=== PATIENT | male | born 1990 | race African-American/Black ===

== ENCOUNTER 2024-03-25 18:32 | Emergency (ER) | payer SELFPAY ==
--- NOTE | 2024-03-25 18:30 | RT.EKG_ITS ---
APPROVED REPORT Exam: Resting ECG Reason for Exam: [facility] Patient Location: E HR:66 bpm ECG Measurements Heart Rate 66 AXIS NM 124 P 0 QRSd 79 QRS 13 QT 347 T 41 QTc 363 Conclusion Sinus rhythm...normal P axis, V-rate 60- 99 ST elev, probable normal early repol pattern...ST elevation, age<55 sinus rhythm, normal axis, normal intervals, non ischemic, early repol
[2024-03-25] MEDS: OLANZapine 10 MG VIAL IM (18:42)
--- NOTE | 2024-03-25 18:43 | ED.GENADUL_ITS ---
Discharge Plan Disposition Patient Disposition: [facility] Condition: Improving Discharge Details Chief Complaint: PsychEval Clinical Impression: Rhabdomyolysis, Drug use ED Provider: Schuyler Bah Discharge Instructions Instructions: Rhabdomyolysis Additional Instructions: Please ensure that you are staying hydrated. Please return to the emergency department for any worsening symptoms HPI General Date/Time Provider Initiated Documentation: 03/25/24 18:34 . HPI Narrative: Unknown male brought in in police custody after being picked up for strange behavior, patient endorses smoking fentanyl and also smoking and other drug earlier today, otherwise not giving any information regarding name or situation, patient has physical altercation with police officers was placed in handcuffs, here for medical evaluation and clearance. Exam Narrative Exam Narrative: Patient sitting upright in wheelchair handcuffed behind his back Diaphoretic warm to the touch Tachycardia normal heart sounds Lungs clear bilaterally speaking in short brief sentences no retractions no wheezes rhonchi or rales Abdomen soft nontender nondistended Moving all extremities cranial nerves intact, 5 out of 5 strength upper and lower extremity Medical Decision Making Unknown age male brought in by PD in custody for strange behavior in public, patient endorses smoking fentanyl and another substance earlier today, patient not disclosing name or any further information regarding what transpired before arrival; patient noted to be diaphoretic tachycardic warm to the touch, no external signs of trauma, moving all extremities without deficits no cranial nerve deficits, no respiratory distress. Obtaining fingerstick glucose, stat EKG, patient placed in 4-point restraints for his safety and the safety of himself and staff, was given 10 mg IM olanzapine, IV access to be obtained patient placed on monitor, will obtain toxicologic labs CT head chest x-ray, urinalysis, VBG CPK TSH consider intoxication/overdose versus must consider intracranial trauma versus electrolyte derangement versus dehydration lower suspicion for infectious process 22: 49 patient resting notably no acute distress. Alert oriented interactive. No signs of current intoxication. Patient still refusing to give his full identification as he is under investigation by PD. Patient is in custody of [facility]. There is no ID on the patient we have no access to finding history identification. Patient has told me that his name is Gil but said he would rather not give me his last name. [place] police have conferred with their sergeant who endorses that they are able to take him into custody even without identification. Resolving mild rhabdomyolysis, patient tolerating p.o. has access to fluids. Quality:SDOH Health Related Social Needs: No Data to Display PFSH All Active Problems (Updated 03/25/24 @ 22:51 by Schuyler Bah MD) Drug use (Acute) Rhabdomyolysis (Acute) Social History Smoking/Tobacco Use Status: Unknown Smoking risk assessment performed?: Yes Substance use type: unknown
[2024-03-25] MEDS: Water,Injection,Sterile 10 ML VIAL (19:01)
[2024-03-25 19:30] LABS: BE (Venous) 2 mmol/L (-2-3); HCO3 (Venous) 27 mmol/L (23-28); O2 Sat (Venous) 72 %; TCO2 (Venous) 24 mmol/L (24-29); pCO2 (Venous) 41 mmHg (41-51); pH (Venous) 7.42 (7.31-7.41); pO2 (Venous) 38 mmHg
[2024-03-25 19:31] LABS: Abs Immature Grans 0.03 10^3/uL (0.0-0.06); Absolute Basophil Count 0.02 10^3/uL (0.0-0.2); Absolute Lymphocyte Count 0.78 10^3/uL (1.2-3.4); Absolute Monocyte Count 0.93 10^3/uL (0.1-0.8); Absolute Neutrophil Count 5.57 10^3/uL (1.2-6.7); Basophils % 0.3 %; HCT 40.2 % (40.0-50.0); Immature Grans % 0.4 %; Lymphocytes % 10.6 %; MCH 30.5 pg (27.0-33.0); MCHC 34.8 % (32.0-36.0); MCV 88 fL (80-95); MPV 9.5 fL (8.0-11.0); Monocytes % 12.7 %; Platelet Count 312 10^3/uL (130-400); RBC 4.59 10^6/uL (4.36-5.78); RDW-SD 38.6 fL; WBC 7.33 10^3/uL (4.4-10.8)
[2024-03-25] MEDS: Normal Saline 1,000 ML 1000 ML IV ×2 (19:31→21:56)
[2024-03-25 19:55] LABS: Salicylate 3.1 mg/dL (<2.8)
[2024-03-25 19:56] LABS: Acetaminophen < 2 ug/mL (10-30)
[2024-03-25 19:58] LABS: ALT 17 U/L (16-63); AST 43 U/L (15-37); Albumin 4.7 g/dL (3.4-5.0); Alkaline Phosphatase 83 U/L (46-116); Anion Gap 13.3 mmol/L (3-11); BUN 7 mg/dL (7-18); Bilirubin, Total 1.49 mg/dL (0.2-1.0); CO2 27.7 mmol/L (21.0-32.0); CREATININE 1.3 mg/dL (0.70-1.30); Calcium 9.4 mg/dL (8.5-10.1); Chloride 102 mmol/L (98-107); Creatine Kinase 1509 U/L (39-308); ETHANOL BLOOD < 3.0 mg/dL (<10); Estimated GFR 73.93 (mL/min/1.73m2); Glucose 119 mg/dL (74-106); Lipase 17 U/L (16-77); Magnesium 1.9 mg/dL (1.8-2.4); Potassium 3.1 mmol/L (3.5-5.1); Sodium 143 mmol/L (136-145); TSH (W/Ref FT4) 0.41 uIU/mL (0.36-3.74); Total Protein 8.3 g/dL (6.4-8.2)
--- NOTE | 2024-03-25 20:05 | DI.RAD_ITS ---
Exam(s) XR PORTABLE CHEST AP EXAM: XR PORTABLE CHEST AP CLINICAL HISTORY: ams TECHNIQUE: 2D digital imaging was performed of the chest. One image was obtained. An AP view was ob tained. COMPARISON: No exams were available for comparison FINDINGS: MEDIASTINUM: Normal. HEART: Normal. PULMONARY VASCULATURE: Normal. LUNGS: Clear. PLEURAL SPACE: No pleural effusion or pneumothorax. BONE:Within normal limits for the patient's age. There is a mild right convex thoracic scoliosis. OTHER FINDINGS:Normal. IMPRESSION: No acute pulmonary findings. DATA REPOSITORY: RADIATION DOSE DELIVERED:
--- NOTE | 2024-03-25 20:11 | DI.CT_ITS ---
Exam(s) CT HEAD WO EXAM: CT HEAD WO CLINICAL HISTORY: ams. TECHNIQUE: Imaging Protocol: Axial computed tomography images with coronal and sagittal reformatted images were created and reviewed COMPARISON: No exams were available for comparison FINDINGS: Ventricles and Extra axial spaces: Normal in size and morphology for the patient's age. Hemorrhage: None. Cerebral parenchyma: Normal. No mass effect. No evidence of an acute territorial infarct. Midline shift: None. Brainstem/Cerebellum: Normal. Calvarium: Normal. Visualized Paranasal sinuses/Mastoids: Clear. Soft Tissues: Unremarkable. IMPRESSION: No acute intracranial process. RADIATION DOSE DELIVERED: Total DLP DATA REPOSITORY: All CT scans at this facility are submitted to the National Radiology Data Registry (NRDR) Dose Index Registry (DIR) with the [employer] ([employer]). RADIATION OPTIMIZATION: All CT scans at this facility use at least one of these dose optimization te chniques: automated exposure control; mA and/or kV adjustment per patient size (includes targeted exa ms where dose is matched to clinical indication); or iterative reconstruction.
--- NOTE | 2024-03-25 20:51 | DI.VRAD_ITS ---
PROCEDURE INFORMATION: Exam: XR Chest Exam date and time: 03/25/2024 8:00 PM Age: 33 years old Clinical indication: AMS TECHNIQUE: Imaging protocol: Radiologic exam of the chest. Views: 1 view. COMPARISON: No relevant prior studies available. FINDINGS: Lungs: Clear lungs. Pleural spaces: No pneumothorax. No sizable pleural effusion. Heart/Mediastinum: No cardiomegaly. Bones/joints: Unremarkable. IMPRESSION: Clear lungs. Dictated and Authenticated by: Claudio Gonzalez MD. Ordering:STEFFI Payan MD
--- NOTE | 2024-03-25 20:51 | DI.VRAD_ITS ---
PROCEDURE INFORMATION: Exam: CT Head Without Contrast Exam date and time: 03/25/2024 8:03 PM Age: 33 years old Clinical indication: Altered mental status/memory loss; Confusion or disorientation; Patient HX: AMS TECHNIQUE: Imaging protocol: Computed tomography of the head without contrast. Radiation optimization: All CT scans at this facility use at least one of these dose optimization techniques: automated exposure control; mA and/or kV adjustment per patient size (includes targeted exams where dose is matched to clinical indication); or iterative reconstruction. COMPARISON: No relevant prior studies available. FINDINGS: Brain: No evidence for acute transcortical infarct. No mass effect or midline shift. No extra-axial collection. No acute intracranial hemorrhage. Basal cisterns are patent. Cerebral ventricles: No ventriculomegaly. Paranasal sinuses: Visualized sinuses are unremarkable. No fluid levels. Mastoid air cells: Visualized mastoid air cells are well aerated. Bones: Unremarkable. No acute fracture. Soft tissues: Unremarkable. IMPRESSION: No evidence for acute transcortical infarct, acute intracranial hemorrhage, or mass effect. Dictated and Authenticated by: Claudio Gonzalez MD. Ordering:STEFFI Payan MD
[2024-03-25 20:56] VITALS: BP 133/70; PULSE 68; TEMP 37.6; O2SAT 99
--- NOTE | 2024-03-25 21:54 | NUR.NOTE ---
Nursing Note: pt provided with hermelindo barrios and pancho; offered a sandwhich and pt declined. Pt is appropriate and cooperative.
[2024-03-25 22:04] LABS: INR 1.2 (0.9-1.1); PTT Activated 30.1 sec (23.6-32.8); Prothrombin Time 12.1 sec (9.1-11.1)
[2024-03-25 22:20] LABS: Creatine Kinase 1230 U/L (39-308)
== END 2024-03-25 23:00 ==
LOC: ER 23:05
PROVIDERS: Emergency Provider Emergency Medicine
DX: F11.90 Opioid use, unspecified, uncomplicated (principal); M62.82 Rhabdomyolysis
CPT/HCPCS: 80053; 82550; 82805; 83690; 93005; 96361; 96374; 99285; 70450; 71045; 80320; 80329; 83735; 84443; 85025; 85610; 85730; 93010; 99283; J2359